=== PATIENT | female | born 1965 ===

== ENCOUNTER 2023-05-06 05:50 | Day surgery (SDC) | payer OTHER ==
[~2023-05-06] VITALS: Ht 149.9 cm; Wt 69.4 kg
[~2023-05-06 05:50] MED LIST: CLONAZEPAM1 MG PO; LEVOTHYROXINE25 MCG PO; PRIL PO; SINGULAIR10 MG PO; ZANAFLEX4 M1 PO
[2023-05-06] MEDS ORDERED: TRAM1TAB98 PO (09:13)
[2023-05-06] MEDS ORDERED: NEURONTIN300 MG PO (09:13)
[2023-05-06] MEDS ORDERED: COLACE100 MG PO (09:13)
== END 2023-05-06 14:50 | disposition home or self-care (01) ==
LOC: CIR.AMB 05:50
PROVIDERS: ATTEND Surgery
DX: K62.5 Hemorrhage of anus and rectum (principal); K64.8 Other hemorrhoids; K64.1 Second degree hemorrhoids; K64.4 Residual hemorrhoidal skin tags; K62.89 Other specified diseases of anus and rectum; Z20.822 Contact with and (suspected) exposure to COVID-19; I10 Essential (primary) hypertension; Z91.018 Allergy to other foods; Z88.0 Allergy status to penicillin; Z88.2 Allergy status to sulfonamides